=== PATIENT | female | born 1995 | race Caucasian/White ===

== ENCOUNTER 2017-04-16 15:36 | Emergency (ER) | payer MEDICAID ==
[2017-04-16 15:45] VITALS: BP 126/78
[2017-04-16 17:27] LABS: BILIRUBIN,URINE NEGATIVE (NEGATIVE); HCG UR QUAL NEGATIVE; UA w/ MICROSCOPIC CHARGE YES
[2017-04-16 17:31] LABS: UR CULTURE IF IND NOT INDICATED; WBC,URINE 0-3 /HPF (0-5)
--- NOTE | 2017-04-16 18:05 | ED Physician Documentation ---
ED Addendum - Addendum Addendum: 04/16/17 17:54 per triage note 21 y/o female to ER with vag spotting and cramps for 2 months after getting implanted control HCG neg VS normal urine c/w dehydartion but not infection went to see pt and she is not in her room 04/16/17 17:55
== END 2017-04-16 18:09 | disposition left against medical advice (07) ==
LOC: ED 15:36
DX: N93.9 Abnormal uterine and vaginal bleeding, unspecified (principal); Z53.21 Procedure and treatment not carried out due to patient leaving prior to being seen by health care provider
CPT/HCPCS: 81001; 81003; 81025; 87086; 99282

== ENCOUNTER 2017-12-11 14:30 | Outpatient (CLI) | payer MEDICAID | END 2017-12-11 14:31 | disposition home or self-care (01) | LOC: LAB.R 14:30 | PROVIDERS: ATTEND Obstetrics & Gynecology | DX: Z11.3 Encounter for screening for infections with a predominantly sexual mode of transmission (principal) | CPT/HCPCS: 87491; 87591 ==

== ENCOUNTER 2018-12-24 20:25 | Outpatient (CLI) | payer MEDICAID ==
--- NOTE | 2018-12-25 10:34 | Ultrasound Report ---
Reason: AMENORRHEA Procedure Date: 12/24/2018 Accession Number: [id number] / [id number] Procedure: US - OB First Trimester CPT Code: FULL RESULT: EXAM: FIRST TRIMESTER OBSTETRIC ULTRASOUND EXAM DATE: 12/24/2018 08:58 PM. CLINICAL HISTORY: Amenorrhea. LMP: Approximately 10/01/2018. COMPARISONS: None. TECHNIQUE: Transabdominal and transvaginal ultrasound examination with static image documentation. CLINICAL DATES: EGA 12 weeks 0 days with NIALL 07/08/2019 based on LMP. ASSESSMENT: Gestational Sac: Single intrauterine. Mean gestational sac diameter: 117 mm . Embryo: CRL (crown-rump length) 62 mm = 12 weeks 4 days. Cardiac activity: 163 beats per minute. Yolk sac: 5.9 mm. Amniotic fluid: Not accurately assessed at this gestational age. Early placenta: Posterior location. Other: No perigestational fluid collection demonstrated. MATERNAL STRUCTURES: Uterus: Anteverted. Unremarkable. Cervix: Closed. Right Ovary/Adnexa: Not seen. Left Ovary/Adnexa: The ovary measures 3.6 x 3.0 x 2.9 cm, volume 16.3 cc. The ovary is not well seen due to bowel. Free Fluid: None. Other: None. IMPRESSION: 1. Single viable intrauterine at EGA 12 weeks 4 days with NIALL 07/04/2019 based on crown-rump length, which is concordant with clinical dates. 2. Assigned dating is NIALL 07/08/2019 based on LMP. MEL
== END 2018-12-24 20:26 | disposition home or self-care (01) ==
LOC: DI 20:25
PROVIDERS: ATTEND Nurse Practitioner Obstetrics & Gynecology
DX: N91.2 Amenorrhea, unspecified (principal)
CPT/HCPCS: 76801

== ENCOUNTER 2019-01-17 13:33 | Outpatient (CLI) | payer MEDICAID ==
[2019-01-17 13:54] LABS: BASOPHILS # (AUTO) 0.1 10^3/uL (0.0-0.1); BASOPHILS % (AUTO) 0.6 %; EOSINOPHILS # (AUTO) 0.1 10^3/uL (0.0-0.7); EOSINOPHILS % (AUTO) 1.4 %; HGB - HEMOGLOBIN 11.3 g/dL (12.0-16.0); LYMPHOCYTES # (AUTO) 1.7 10^3/uL (1.5-3.5); LYMPHOCYTES % (AUTO) 16.3 %; MEAN CORPUSCULAR HEMOGLOBIN 30.1 pg (27.0-31.0); MEAN CORPUSCULAR HGB CONC 34.8 g/dL (32.0-36.0); MEAN CORPUSCULAR VOLUME 86.5 fL (81.0-99.0); MEAN PLATELET VOLUME 10.1 fL (7.9-10.8); MONOCYTES # (AUTO) 0.4 10^3/uL (0.0-1.0); MONOCYTES % (AUTO) 4.2 %; NEUTROPHILS # (AUTO) 7.9 10^3/uL (1.5-6.6); NEUTROPHILS % (AUTO) 77.5 %; PLT - PLATELET COUNT 194 10^3/uL (130-450); RED BLOOD COUNT 3.76 10^6/uL (4.20-5.40); WHITE BLOOD COUNT 10.2 x10^3/uL (4.8-10.8)
[2019-01-17 14:06] LABS: BILIRUBIN,URINE NEGATIVE (NEGATIVE); GLUCOSE, URINE (UA) NEGATIVE (NEGATIVE); KETONES,URINE (UA) 40 mg/dL (NEGATIVE); LEUKOCYTE ESTERASE, URINE TRACE (NEGATIVE); NITRITE,URINE NEGATIVE (NEGATIVE); OCCULT BLOOD,URINE TRACE-INTA (NEGATIVE); PROTEIN,URINE TRACE mg/dL (NEGATIVE); UROBILINOGEN,URINE 0.2 (NORMAL) E.U./dL (NORMAL)
[2019-01-17 14:38] LABS: CLARITY,URINE CLEAR (CLEAR); RBC,URINE 0-5 /HPF (0-5)
[2019-01-17 14:39] LABS: BACTERIA,URINE Few /HPF (None Seen); SQUAMOUS EPITHELIAL CELL,UR MOD Squamous (<= Few)
[2019-01-18 13:02] LABS: HEPATITIS B SURFACE ANTIGEN NON-REACTIVE (NON-REACTIVE); HEPATITIS C ANTIBODY NON-REACTIVE (NON-REACTIVE)
[2019-01-18 14:12] LABS: HIV AG/AB 4TH GEN NON-REACTIVE (NON-REACTIVE)
== END 2019-01-17 13:34 | disposition home or self-care (01) ==
LOC: LAB 13:33
PROVIDERS: ATTEND Nurse Practitioner Obstetrics & Gynecology
DX: Z36.89 Encounter for other specified antenatal screening (principal)
CPT/HCPCS: 36415; 81001; 81599; 85025; 86762; 86803; 86850; 86900; 86901; 87086; 87340; 87389

== ENCOUNTER 2019-02-19 12:45 | Outpatient (CLI) | payer MEDICAID ==
--- NOTE | 2019-02-19 15:22 | Ultrasound Report ---
Reason: SUPERVISION OF Procedure Date: 02/19/2019 Accession Number: [id number] / [id number] Procedure: US - OB Detailed Eval CPT Code: FULL RESULT: EXAM: COMPLETE OBSTETRICAL ULTRASOUND EXAM DATE: 02/19/2019 12:57 PM. CLINICAL HISTORY: anatomic survey. COMPARISON: OB FIRST TRIMESTER 12/24/2018 8:33 PM. TECHNIQUE: Real-time sonographic evaluation of the fetus performed by the outdoor adventure instructor. Multiple tax representative static images were saved for review. DATING: Established EGA 20 weeks 1 day with NIALL 07/08/2019 based on LMP. EGA 20 weeks 1 day with NIALL 07/08/2019 based on the current ultrasound. GENERAL EVALUATION Kaur . Cardiac activity: 140 bpm. movement: Visualized. Presentation: Cephalic. Placenta: Posterior and fundal position. No evidence for previa. Umbilical cord: 3 vessel cord. Central placental cord origin. Amniotic fluid: Subjectively normal. MVP 4.5 cm and OMA 12.5 cm. BIOMETRY Bi-Parietal Diameter (BPD): 4.6 cm, 20 weeks 0 days Head Circumference (HC): 17.2 cm, 19 weeks 5 days Abdominal Circumference (AC): 15.9 cm, 21 weeks 0 days Femur Length (FL): 3.2 cm, 19 weeks 6 days Estimated Weight: 349 g, 58th percentile for 20 weeks 1 day. ANATOMY The intracranial structures, profile, face/nose/lips, spine, 4 chamber heart and outflow tracts, stomach, abdominal wall and cord insertion, diaphragm, kidneys, bladder, and extremities were visualized and demonstrate no abnormality. MATERNAL STRUCTURES Uterus: Unremarkable. Cervix: Long and closed. Transabdominal length 2.9 cm. Right ovary/adnexa: Unremarkable. Left ovary/adnexa: Unremarkable. Free fluid: None. IMPRESSION: 1. Kaur live intrauterine with gestational age 20 weeks 1 day based on LMP. 2. Estimated weight is within expected limits for assigned dating. 3. Normal anatomic survey. No anatomic abnormalities are detected at this time. RADIA
== END 2019-02-19 12:46 | disposition home or self-care (01) ==
LOC: DI 12:45
PROVIDERS: ATTEND Registered Nurse
DX: Z34.90 Encounter for supervision of normal pregnancy, unspecified, unspecified trimester (principal)
CPT/HCPCS: 76811

== ENCOUNTER 2019-04-03 15:05 | Outpatient (CLI) | payer MEDICAID ==
[2019-04-03 16:29] LABS: HGB - HEMOGLOBIN 11.1 g/dL (12.0-16.0); MEAN CORPUSCULAR HEMOGLOBIN 30.2 pg (27.0-31.0); MEAN CORPUSCULAR VOLUME 88.9 fL (81.0-99.0); MEAN PLATELET VOLUME 10.7 fL (7.9-10.8); RED BLOOD COUNT 3.67 10^6/uL (4.20-5.40); RED CELL DISTRIBUTION WIDTH 12.9 % (12.0-15.0); WHITE BLOOD COUNT 10.8 x10^3/uL (4.8-10.8)
== END 2019-04-03 15:06 | disposition home or self-care (01) ==
LOC: LAB 15:05
PROVIDERS: ATTEND Registered Nurse
DX: Z34.90 Encounter for supervision of normal pregnancy, unspecified, unspecified trimester (principal)
CPT/HCPCS: 36415; 82950; 85027; 86850

== ENCOUNTER 2019-04-15 08:00 | Outpatient (CLI) | payer MEDICAID | END 2019-04-15 23:59 | disposition home or self-care (01) | LOC: LAB.R 08:00 | PROVIDERS: ATTEND Nurse Practitioner Obstetrics & Gynecology | DX: R39.11 Hesitancy of micturition (principal) | CPT/HCPCS: 87086 ==

== ENCOUNTER 2019-06-12 08:00 | Outpatient (CLI) | payer MEDICAID ==
[2019-06-12 19:18] LABS: TRICHOMONAS VAGINALIS DNA NEGATIVE (NEGATIVE)
== END 2019-06-12 08:01 | disposition home or self-care (01) ==
LOC: LAB.R 08:00
PROVIDERS: ATTEND Nurse Practitioner Obstetrics & Gynecology
DX: Z36.85 Encounter for antenatal screening for Streptococcus B (principal); Z11.3 Encounter for screening for infections with a predominantly sexual mode of transmission
CPT/HCPCS: 87491; 87591; 87661; 87797

== ENCOUNTER 2019-06-25 07:19 | Inpatient (IN) | payer MEDICAID ==
[2019-06-25] MEDS ORDERED: MAGNESIUM HYDROXIDE 2,400 MG/30 ML UDC PO PRN (07:38)
[2019-06-25] MEDS ORDERED: SODIUM CHLORIDE FLUSH 0.9% 10 ML SYRINGE IVP PRN (08:53)
--- NOTE | 2019-06-25 08:58 | HISTORY & PHYSICAL EXAMINATION ---
Admit History - Visit Reason Visit Reason: Other - : 2 Parity: 0 Premature: 0 Ectopic: 0 : 1 Care: positive: [facility] Risk/History: positive: None Complications This : positive: Other Smoking Status: Never smoker - Mother's Labs Mother's Blood Type: positive: O Mother's RH: positive: Positive GBS: positive: Group B Step Negative Rubella Status: positive: Immune Meds/Allgy - Home Medications Home Medications: Ambulatory Orders Medication Instructions Recorded Confirmed Metoclopramide [Reglan] 10 mg PO Q6H PRN #20 tablet 10/03/17 Naproxen [Naprosyn] 500 mg PO BID PRN #20 tablet 10/03/17 - Allergies Allergies/Adverse Reactions: Allergies Allergy/AdvReac Type Severity Reaction Status Date / Time No Known Drug Allergies Allergy Verified 10/03/17 19:10 Review of Systems - Constitutional Constitutional: denies: Fatigue, Fever, Chills, Malaise - Eyes Eyes: denies: Blurred vision, Spots in vision, Dipolpia - Cardiovascular Cariovascular: denies: Irregular heart rate, Palpitations, Chest pain, Edema - Gastrointestinal Gastrointestinal: reports: Constipation, Nausea, Vomiting. denies: Abdominal pain - Musculoskeletal Musculoskeletal: denies: Back pain, Muscle aches - Integumentary Integumentary: reports: Pruritis. denies: Rash - Neurological Neurological: denies: Headache, Dizziness - Psychiatric Psychiatric: denies: Depression, Anxiety Physical - Abdominal Exam Contraction Frequency (min/apart): intermittent Contraction Intensity: positive: Mild Uterine Resting Tone: positive: Soft - Monitoring Heart Rate Baseline: 130 Strip Review: positive: Category II - Presentation Presentation: positive: Vertex - Vaginal Exam Membranes: positive: Membranes intact Dilation (in cm): 1 Effacement (%): 50 Station: positive: -3 Cervical Position: positive: Posterior - Speculum Exam Speculum Exam Performed: positive: No Plan for Labor - Plan For Labor I expect patient to be DC'd or transferred within 96 hours.: Yes Plan for Labor: HPI: Salas 23yo @ 38.1wks gestation by LMP c/w 12.4wk ultrasound presents to [facility] on 06/25/2019 @ 0730 for induction of labor with pre-induction cervical ripening secondary to cholestasis of . She has been a patient of [facility] through the duration of her . At her routine office visit at 37.2wks gestation she reported itching on her abdomen and legs which became significantly worse at night. Cholestasis was suspected and labs were ordered. LFTS and bilirubin WNL. Bile acids returned 06/24/2019 and were noted to be elevated to 15 which meets diagnostic criteria for cholestasis in . She was notified and instructed to present for induction of labor. Upon arrival cervix was 1/50/-3, posterior, medium consistency, and vertex position. NST non-reactive in the first hour and patient was placed in observation status for pre-induction cervical ripening with misoprostol. Consent form for induction of labor signed upon arrival. Dating criteria: LMP 10/01/2018 Initial Ultrasound @ 12.4wks c/w LMP dating Serial Exams - agree OB History: G1: 11/16/2017 4-5wks missed G2: Current; Cholestasis in PMHx: Anemia; headaches/migraines Surgical Hx: None Social Hx: No ETOH or IVDA. is active duty Family Hx: Anxiety - maternal grandmother; depression - maternal grandmother; Asthma - mother; Anemia- mother; Breast cancer - maternal great grandmother Medications: Zofran 4mg vitamin Allergies: Fioricet labs: Blood type O positive, antibody neg Hgb 11.1; Hct 32.6; PLT 187 Rubella immune RPR non-reactive Hep B neg GC/CT neg Urine culture neg Pap abnormal -HPV high grade positive HIV neg 1hr GTT 129 GBS negative Immunizations: Tdap 04/15/2019 Ultrasounds: Initial ultrasound 12/24/2018 @ 12.4wks c/w LMP dating FAS 02/19/2019 WNL. Posterior, fundal placenta. No previa. 3VC. Size c/w dating. Physical Exam: Normocephalic, atraumatic Heart RRR w/o M/G/R Lungs CTAB Abdomen gravid, soft and nontender EFW 3000g FHR baseline 130s, minimal variability with brief periods of moderate variability, + accels on occasion, no decels - Category II but overall reassuring at this time SVE 1/50/-3, posterior, medium consistency, vertex. Membranes intact. Bilateral LE's no edema Assessment: 23yo @ 38.1wks gestation by LMP c/w 12.4wk U/S Cholestasis in FHR Category II - overall reassuring Pre-induction cervical ripening Plan: Observation status with admission with SROM or active labor. Continuos monitoring Pre-induction cervical ripening with 50mcg misoprostol q 4 hours BC Encouraged ambulation and frequent position changes Anticipate spontaneous vaginal delivery Patient and verbalized understanding and agree to above plan. They deny questions or concerns at this time. Reviewed patient status and plan of care with groundwater consultant physician whom is in agreement with above plan.
--- NOTE | 2019-06-25 09:27 | PROVIDER PROGRESS NOTE ---
Labor Progress Note - Uterine Monitoring Uterine Monitoring Mode: positive: External toco - Monitoring Monitor Mode: positive: External ultrasound Heart Rate Baseline: 130 Heart Rate Variability: positive: Moderate (6-25 bmp) Accelerations: positive: Present, 15x15 Decelerations: positive: None Strip Review: positive: Category I
[2019-06-25 09:29] LABS: BASOPHILS # (AUTO) 0.1 10^3/uL (0.0-0.1); BASOPHILS % (AUTO) 0.5 %; EOSINOPHILS # (AUTO) 0.2 10^3/uL (0.0-0.7); EOSINOPHILS % (AUTO) 1.8 %; HGB - HEMOGLOBIN 11.8 g/dL (12.0-16.0); MEAN CORPUSCULAR HEMOGLOBIN 28.9 pg (27.0-31.0); MEAN CORPUSCULAR HGB CONC 33.3 g/dL (32.0-36.0); MEAN CORPUSCULAR VOLUME 86.6 fL (81.0-99.0); MEAN PLATELET VOLUME 14.7 fL (7.9-10.8); MONOCYTES # (AUTO) 0.7 10^3/uL (0.0-1.0); MONOCYTES % (AUTO) 6.8 %; NEUTROPHILS % (AUTO) 70.5 %; PLT - PLATELET COUNT 110 10^3/uL (130-450); RED BLOOD COUNT 4.09 10^6/uL (4.20-5.40); RED CELL DISTRIBUTION WIDTH 12.2 % (12.0-15.0); WHITE BLOOD COUNT 9.9 x10^3/uL (4.8-10.8)
[2019-06-25 09:41] LABS: ALBUMIN 3.4 g/dL (3.2-5.5); ALBUMIN/GLOBULIN RATIO 0.9 (1.0-2.2); BILIRUBIN,TOTAL 0.8 mg/dL (0.2-1.0); CALCIUM 9.7 mg/dL (8.5-10.3); CREATININE 0.6 mg/dL (0.4-1.0); TOTAL PROTEIN 7.2 g/dL (6.7-8.2)
[2019-06-25 10:07] LABS: PLATELET ESTIMATE, MANUAL DECREASED (<130,000) (NORMAL); PLATELET MORPHOLOGY 2+ LARGE PLATELETS (NORMAL); RBC MORPHOLOGY (MULTIPLE) NORMAL APPEARANCE (NORMAL)
[2019-06-25] MEDS: ONDANSETRON 4 MG/2 ML VIAL IVP PRN (10:57)
[2019-06-25] MEDS: miSOPROStol 100 MCG TABLET BC SCH ×3 (14:28→22:41)
--- NOTE | 2019-06-25 18:19 | PROVIDER PROGRESS NOTE ---
Labor Progress Note - Uterine Monitoring Uterine Monitoring Mode: positive: External toco Contraction Frequency (min/apart): 2-6 Contraction Intensity: positive: Mild to moderate Uterine Resting Tone: positive: Soft - Monitoring Monitor Mode: positive: External ultrasound Heart Rate Baseline: 130 Heart Rate Variability: positive: Moderate (6-25 bmp) Accelerations: positive: Present, 15x15 Decelerations: positive: None Strip Review: positive: Category I - Labor Progress Note Labor Progress Note/Additional Text: S: Laying comfortably in bed with supportive at the bedside. Feeling some lower abdominal cramping but overall doing well. Reports +FM. Feeling well emotionally and is aware that this can be a long process before active labor. She denies vaginal bleeding or leakage of fluid. Desires Ambien for sleep tonight. O: Platelets on admission - 110; Hct 11.8; Hct 35.4 LFTs -WNL FHR baseline 130s, moderate variability, + accels, no decels Contractions palpate mild-moderate with soft resting tone. SVE - deferred A: 23yo @ 38.1wks gestation Pre-induction cervical ripening with misoprostol s/p 1 dose misoprostol GBS negative P: Continuous monitoring Continue pre-induction cervical ripening with misoprostol 50mcg BC q 4 hours Repeat CBC and CMP in the morning Ambien 10mg tonight to promote sleep. Reviewed plan of care with patient and who are in agreement and verbalized understanding.
[2019-06-25] MEDS ORDERED: ZOLPIDEM 5 MG TABLET PO PRN (21:30)
[2019-06-26] MEDS: miSOPROStol 100 MCG TABLET BC SCH ×2 (02:45→06:30)
[2019-06-26 06:48] LABS: HGB - HEMOGLOBIN 11.7 g/dL (12.0-16.0); MEAN CORPUSCULAR HEMOGLOBIN 28.7 pg (27.0-31.0); MEAN CORPUSCULAR HGB CONC 32.9 g/dL (32.0-36.0); MEAN CORPUSCULAR VOLUME 87.5 fL (81.0-99.0); PLT - PLATELET COUNT 127 10^3/uL (130-450); RED BLOOD COUNT 4.07 10^6/uL (4.20-5.40); RED CELL DISTRIBUTION WIDTH 12.5 % (12.0-15.0); WHITE BLOOD COUNT 11.4 x10^3/uL (4.8-10.8)
[2019-06-26 07:04] LABS: ALBUMIN 3.4 g/dL (3.2-5.5); ALBUMIN/GLOBULIN RATIO 0.9 (1.0-2.2); BILIRUBIN,TOTAL 1.1 mg/dL (0.2-1.0); CALCIUM 9.6 mg/dL (8.5-10.3); CREATININE 0.7 mg/dL (0.4-1.0); TOTAL PROTEIN 7.2 g/dL (6.7-8.2)
--- NOTE | 2019-06-26 08:20 | PROVIDER PROGRESS NOTE ---
Labor Progress Note - Uterine Monitoring Uterine Monitoring Mode: positive: External toco Contraction Frequency (min/apart): 2-6 Contraction Intensity: positive: Moderate Uterine Resting Tone: positive: Soft - Monitoring Monitor Mode: positive: External ultrasound Heart Rate Baseline: 140 Heart Rate Variability: positive: Moderate (6-25 bmp) Accelerations: positive: Present, 15x15 Decelerations: positive: None Strip Review: positive: Category I - Vaginal Exam Dilation (in cm): 2 Effacement (%): 75 Station: -2 Cervical Position: Midposition - Labor Progress Note Labor Progress Note/Additional Text: S: Sitting in bed and beginning to feel more uncomfortable with contractions. Sh codie reports the majority of her discomfort is felt in her back. She did not sleep well throughout the night and states she was not offered and ambien. Reports the reason she did not sleep well was secondary to discomfort with contractions throughout the night. is supportive at the bedside. O: Hgb: 11.8-->11.7 Hct 35.4-->35.6 PLT 110-->127 AST 29-->28 ALT 17-->21 Total bilirubin 0.8-->1.1 Creatinine 0.6-->0.7 FHR baseline 140s, moderate variability, + accels, no decels Contractions palpate moderate every 2-6 minutes with soft resting tone SVE @ 0630 2/75/-2, midposition, medium consistency, vertex, membranes intact A: 23yo @ 38.2wks gestation Cholestasis of - LFTs WNL; PLT improved from 110-->127 Pre-induction cervical ripening with misoprostol s/p 5 total doses GBS neg P: Continuous monitoring Continue pre-induction cervical ripening with misoprostol 50mcg BC q 4 hours Consider SVE prior to administration of next dosage. Will switch to pitocin for induction of labor when cervix is favorable and consider AROM when head is well engaged. Encouraged ambulation and sitting on exercise ball. Advised jacuzzi if contractions become more uncomfortable. Epidural per maternal request. Pt and both verbalized understanding and agree to above plan. They deny further questions or concerns at this time.
[2019-06-26] MEDS: LACTATED RINGERS 1,000 ML IV SCH ×3 (11:28→16:16)
[2019-06-26] MEDS ORDERED: OXYTOCIN/DEXTROSE 5 % 30 UNIT/500 ML BAG IV SCH (12:00)
[2019-06-26] MEDS ORDERED: fent/BUPIV 2 MCG/0.125% 250 ML EP ONE (12:13)
[2019-06-26] MEDS: SODIUM CHLORIDE FLUSH 0.9% 10 ML SYRINGE IVP SCH ×2 (12:49→22:20)
[2019-06-26] MEDS ORDERED: fent/BUPIV 2 MCG/0.125% 250 ML EP PRN (13:00)
[2019-06-26] MEDS ORDERED: diphenhydrAMINE INJ 50 MG/ML VIAL IVP PRN (13:01)
[2019-06-26] MEDS ORDERED: LACTATED RINGERS 500 ML IV ONE (13:01)
[2019-06-26] MEDS ORDERED: NALBUPHINE 10 MG/ML AMP IVP PRN (13:01)
[2019-06-26] MEDS ORDERED: ePHEDrine 50 MG/ML VIAL IVP PRN (13:01)
[2019-06-26] MEDS ORDERED: METOCLOPRAMIDE 10 MG/2 ML VIAL IVP PRN (13:01)
[2019-06-26] MEDS ORDERED: ONDANSETRON 4 MG/2 ML VIAL IVP PRN (13:01)
[2019-06-26] MEDS ORDERED: NALOXONE 0.4 MG/ML VIAL IVP PRN (13:01)
[2019-06-26] MEDS: ONDANSETRON 4 MG/2 ML VIAL IVP PRN (14:05)
--- NOTE | 2019-06-26 16:27 | PROVIDER PROGRESS NOTE ---
Labor Progress Note - Uterine Monitoring Uterine Monitoring Mode: positive: External toco Contraction Frequency (min/apart): 1-4 Contraction Intensity: positive: Strong Uterine Resting Tone: positive: Soft - Monitoring Monitor Mode: positive: External ultrasound Heart Rate Baseline: 140 Heart Rate Variability: positive: Moderate (6-25 bmp) Accelerations: positive: Present, 15x15 Decelerations: positive: Early, Variable, Intermittent (<50% x20 min) Strip Review: positive: Category I - Vaginal Exam Dilation (in cm): 5 Effacement (%): 100 Station: 1 Cervical Position: Anterior - Labor Progress Note Labor Progress Note/Additional Text: S: Patient laying in bed comfortable with epidural with the exception of nausea and vomiting despite administration of zofran. She states she has not been able to rest or sleep with her epidural because she is nervous/anxious/excited about having a baby. O: FHR baseline 140s, moderate variability, + accels, no decels Contractions palpate firm every 1-4 minutes with soft resting tone SVE 5/100/+1, anterior, vertex SROM moderate amount of clear fluid at A: 23yo @ 38.1wks gestation Cholestasis in GBS neg Active labor FHR Category I P: Continue pitocin induction of labor with titration per protocol Continuos monitoring Anticipate spontaneous vaginal delivery
[2019-06-26] MEDS ORDERED: LIDOCAINE-MPF 1% 30 ML VIAL ONE (19:02)
[2019-06-26] MEDS ORDERED: WITCH HAZEL/GLYCERIN 1 PAD TOP PRN (19:48)
[2019-06-26] MEDS ORDERED: HYDROCORTISONE 1% CREAM 28 GM TUBE PR PRN (19:48)
--- NOTE | 2019-06-26 20:06 | DELIVERY NOTE ---
Delivery Note - Labor Labor: positive: Induced by oxytocin - Infant Delivery Method Delivery Method: positive: Spontaneous vaginal delivery - Cervical Ripening Method Cervical Ripening Method: positive: Misoprostil - Presentation Presentation: positive: Vertex, ENRIQUE - left occiput anterior - Nuchal Cord Nuchal Cord: positive: Present, Reduced - Amniotic Fluid Description Amniotic Fluid Description: positive: Clear - Episiotomy Type Episiotomy Type: positive: None - Laceration Laceration: positive: None - Delivery Outcome Delivery Outcome: positive: Livebirth - : positive: Placed in direct skin contact with mother, Stimulated, Warmed, Marshall used [place] sex: positive: Male - Cord Cord: positive: 3 vessels - Placenta Placenta: positive: Intact, Spontaneous - Estimated Blood Loss Estimated Blood Loss (in cc): 200 - Post Delivery Events Post Delivery Events: positive: No post delivery events - Delivery Comments (Free Text/Narrative) Delivery Comments (Free Text/Narrative): This 23yo @ 38.2wks gestation by 12.4wk U/S presented to [facility] on 06/25/2019 for medical induction of labor secondary to cholestasis in . She received 5 total doses of 50mcg misoprostol q 4 hours BC for effective pre- induction cervical ripening. FHR pattern was initially non-reassuring secondary to minimal variability but improved and remained Category I pattern throughout labor. Epidural placed per maternal request. Pitocin administered via IV for induction of labor with a maximum infusion rate of 6mU/mL. SROM occurred at 1500 and was noted to be a small amount of clear fluid. Patient progressed to c/c/+1 @ 1819. : Normal of viable male at 1905 on 06/26/2019. Nuchal cord x 1 easily reduced. placed on maternal abdomen, stimulated, dried, and placed skin to skin. Pitocin administered via IV for hemostasis. Apgars 8/9 at 1 and 5 min respectively. The umbilical cord was allowed to stop pulsating at which time it was doubly clamped by CNM and cut by FOB. Cord blood was obtained. 3VC. EBL 200mL. Placenta delivered spontaneously and intact at 1909. Uterine fundus firm and there is no excessive bleeding. The perineum, vagina, and cervix were inspected and found to be intact. initiated. Family bonding well. Both mother and baby were left in stable condition.
[2019-06-26] MEDS: IBUPROFEN 800 MG TABLET PO SCH (22:26)
[2019-06-26] MEDS: DOCUSATE SODIUM 100 MG CAPSULE PO SCH (22:26)
[2019-06-27] MEDS: IBUPROFEN 800 MG TABLET PO SCH ×3 (04:55→17:20)
--- NOTE | 2019-06-27 08:11 | PROVIDER PROGRESS NOTE ---
Subjective - Subjective Subjective: S: Bonding well with . Having some difficulty with and trying to get baby latched. States she worked through the night to try to keep baby awake at the breast and was able to get 2 successful feeds in. Reports her bleeding is decreased and is light. Her pain is well controlled with ibuprofen. supportive at the bedside. O: BP 117/60, T 36.6, HR 61, RR 16 Heart RRR w/o M/G/R, lungs CTAB, Abdomen soft and nontender with fundus firm at U-1, light lochia rubra, bilateral LE's no edema. A: 23yo -->P1 PPD#1 s/p TSVD of viable male Perineum intact P: Continue routine pp care and medications. Special attention to and support today. Evaluate for discharge home tomorrow. Pt and verbalized understanding and agree to above plan. They deny further questions or concerns at this time. Objective - Vital Signs/Intake & Output Vital Signs: Vital Signs x48h Temp Pulse Resp BP Pulse Ox 06/27/19 06:15 36.6 C 61 16 117/60 99 06/27/19 01:40 73 16 115/74 99 Intake & Output: Intake & Output 06/24/19 06/25/19 06/26/19 06/27/19 23:59 23:59 23:59 23:59 Intake Total 3228.333 Output Total 3100 Balance 128.333 - Lab Results Fish Bones: 06/26/19 06:40 06/26/19 06:40
[2019-06-27] MEDS: DOCUSATE SODIUM 100 MG CAPSULE PO SCH ×2 (08:56→21:49)
[2019-06-28] MEDS: IBUPROFEN 800 MG TABLET PO SCH ×3 (00:36→11:49)
--- NOTE | 2019-06-28 07:20 | Discharge Plan ---
Discharge Plan Problem Reviewed?: Yes Disposition: Home, Self Care Condition: Good Diet: Regular Activity Restrictions: No Restrictions Shower Restrictions: No Driving Restrictions: No Weight Bearing: Full Weight No Smoking: If you smoke, Please STOP! Call for help. Follow-up with: Holley Miller CNM, ARNP [Provider Admit Priv/Credential] -
--- NOTE | 2019-06-28 07:26 | PROVIDER PROGRESS NOTE ---
Subjective - Subjective Subjective: FINAL PROGRESS NOTE: S: Bonding well with baby. without difficulty. Pain is well controlled with oral medications. Bleeding decreased and is light. They are anxious to go home today. supportive at the bedside. O: BP 110/75, HR 70, T 36.7, RR 16 Heart RRR w/o M/G/R, lungs CTAB, abdomen soft and nontender with fundus firm at U-2. Perineum intact. Light lochia rubra. Bilateral LE's no edema. A: 23yo -->P1 PPD#2 s/p TSVD of viable male Perineum intact P: Reviewed pp self care and warning s/sx and when to present. Advised continuation of vitamin while . Advised continuation of ibuprofen and tylenol OTC for pain management PRN. Return in 1 week for support visit and in 3 weeks for routine pp visit or sooner PRN. Pt verbalized understanding and agrees to above plan. supportive at the bedside and present for discharge teaching and also verbalized understanding and agrees to above plan. They deny further questions or concerns at this time. Objective - Vital Signs/Intake & Output Vital Signs: Vital Signs x48h Temp Pulse Resp BP Pulse Ox 06/28/19 06:55 36.7 C 70 16 110/75 100 Intake & Output: Intake & Output 06/25/19 06/26/19 06/27/19 06/28/19 23:59 23:59 23:59 23:59 Intake Total 3228.333 Output Total 3100 Balance 128.333 - Lab Results Fish Bones: 06/26/19 06:40 06/26/19 06:40
[2019-06-28 07:32] LABS: HGB - HEMOGLOBIN 11.7 g/dL (12.0-16.0); MEAN CORPUSCULAR HEMOGLOBIN 29.3 pg (27.0-31.0); MEAN CORPUSCULAR HGB CONC 33.2 g/dL (32.0-36.0); MEAN CORPUSCULAR VOLUME 88.2 fL (81.0-99.0); RED BLOOD COUNT 3.99 10^6/uL (4.20-5.40); RED CELL DISTRIBUTION WIDTH 12.5 % (12.0-15.0); WHITE BLOOD COUNT 12.7 x10^3/uL (4.8-10.8)
[2019-06-28 07:39] LABS: ALBUMIN 3.2 g/dL (3.2-5.5); ALBUMIN/GLOBULIN RATIO 0.9 (1.0-2.2); BILIRUBIN,TOTAL 0.6 mg/dL (0.2-1.0); CALCIUM 9.2 mg/dL (8.5-10.3); CREATININE 0.6 mg/dL (0.4-1.0); TOTAL PROTEIN 6.7 g/dL (6.7-8.2)
[2019-06-28] MEDS: DOCUSATE SODIUM 100 MG CAPSULE PO SCH (08:42)
--- NOTE | 2019-06-28 10:52 | DISCHARGE SUMMARY ---
Physician: JEAN PAUL Franco DATE OF ADMISSION: 06/26/2019 DATE OF DISCHARGE: 06/28/2019 DIAGNOSES ON ADMISSION 1. A 23-year-old G2, P0-0-1-0 at 38.0 weeks' gestation by 12-week ultrasound. 2. Cholestasis in . 3. Group B streptococcus negative. 4. Pre-induction cervical ripening with misoprostol. DIAGNOSES ON DISCHARGE 1. A 23-year-old G2, P1-0-1-1, status post spontaneous vaginal delivery on 06/26/2019. 2. . 3. Normal recovery. BRIEF HISTORY: She is a patient of [facility] who presented on 06/25/2019 for induc tion of labor with pre-induction cervical ripening secondary to cholestasis of . She receiv ed 5 total doses of 50 mcg of misoprostol q.4 hours for effective cervical ripening. Epidural placed per maternal request. Pitocin administered via IV with titration per protocol for a max infusion ra te of 6 milliunits per mL. Spontaneous rupture of membranes occurred at 1500 and was noted to be a s mall amount of clear fluid. Patient progressed to spontaneously deliver a viable male infant at 1905 on 06/26/2019. Nuchal cord x1, easily reduced. Apgars were 8 and 9 at one and five minutes respect ively. EBL was 200 mL. She has been doing well in her course. She is ambulating and tolerating a regular diet. She is urinating without difficulty and her lochia is normal. Her pain is well controlled with oral medications. She has been given precautions to call if she has any worsening fevers, chills, abdomin al pain, increased vaginal bleeding or foul-smelling vaginal lochia. She intends to follow up with ryder martinez at [facility] in 1 week for a support visit and in 2 weeks for shaila klein visit. Both patient and were present for discharge teaching, and verbalized un derstanding and agreed to the above plan. TD: 06/28/2019 07:35
[2019-06-28 11:31] VITALS: BP 118/74
--- NOTE | 2019-06-28 12:51 | Labor Flowsheet ---
Labor Flowsheet Datetime Report Generated by CPN: 06/28/2019 12:51 Datetime: 06/27/2019 20:24 VITAL SIGNS NBP Sys/Mohini/Mean (mmHg): 118 : 76 : 85 Pulse: 78 LaborFlag: Labor Datetime: 06/26/2019 22:25 SpO2 (%): 100 Datetime: 06/26/2019 19:02 Pushing Position: Pushing with Contractions Pushing Progress: Descent with Pushing; Perineal Bulging; with Pushing; Pushing Effectivel y with Contractions Datetime: 06/26/2019 19:01 ASSESSMENT A Monitor Mode: External US FHR Baseline Rate : 150 Variability: Moderate 6-25 bpm Decelerations: Early Category: Category II Datetime: 06/26/2019 18:54 FHR Baseline Changes: No Baseline Change Comments: Decels with pushing Oxygen Method: Nasal Cannula Datetime: 06/26/2019 18:35 UTERINE ACTIVITY Monitor Mode: External Frequency (min): 2 Quality: Strong Pattern: Normal: <= 5 Contractions in 10 Minutes Resting Tone (Palpate): Relaxed Pitocin Checklist: At Least 1 Acceleration of 15 bpm x 15 Seconds in 30 Minutes or Adequate Variabi lity Contraction Comments: Pt pushing Accelerations: 15X15 Datetime: 06/26/2019 18:23 Oxygen Amount (LPM): 10 Datetime: 06/26/2019 18:19 STAGE 2 Pushing: Coached on Pushing; Urge to Push Stage 2 Comments: pushing started Datetime: 06/26/2019 18:13 VAGINAL EXAM Dilatation (cm): 10.0 Datetime: 06/26/2019 18:01 Effacement (%): 100 Station: 2 Exam by: kj Datetime: 06/26/2019 17:30 Monitor Interventions for UA: [place] Adjusted Datetime: 06/26/2019 17:02 Duration (sec): 60 Monitor Interventions for FHR: Ultrasound Adjusted Patient Position/Activity: Right Tilt Hygiene: Underpad Changed Anesthesia Level Check: T10- Umbilicus Datetime: 06/26/2019 15:52 Cervix, Position: Anterior Datetime: 06/26/2019 15:00 Membranes Rupture Method: Spontaneous Amniotic Fluid Color: Clear Amniotic Fluid Amount: Small Amniotic Fluid Odor: Normal Datetime: 06/26/2019 14:45 Membrane Status: Intact Datetime: 06/26/2019 14:31 I/O Interventions: Lozano Cath Inserted Datetime: 06/26/2019 14:01 Stage of : Labor Datetime: 06/26/2019 13:50 COMMUNICATION Communication: Report Given to @ Dilshad Miller, [employer] ADVIS[employer] Notification Reason: Status Update Communication Comments: Notified of time of epidural, and start of pitocin Datetime: 06/26/2019 13:45 Actions for Decelerations: Side to Side Datetime: 06/26/2019 13:01 MEDICATIONS Pitocin (milliunits): Started @ 1300 Datetime: 06/26/2019 12:36 Epidural Procedure: Test Dose Anesthesia Comments: Negative test dose Datetime: 06/26/2019 12:12 PROCEDURE TIME OUT Procedure Type: Epidural Procedure Verify: Correct Patient Identity; Correct Side and Site are Marked; Accurate Procedure Co nsent Form; Agreement on Procedure to be Done; Correct Patient Position; Relevant Images and Results are Properly Labeled and Displayed; Addressed Need to Administer Antibiotics or Fluids for Irrigation ; Safety Precautions Based on Patient History or Medication Use ANESTHESIA Anesthesia Plans: Epidural Epidural Positioning: Sitting Datetime: 06/26/2019 12:01 Temperature (C): 36.8 PAIN Pain Scale: 7 Pain Presence: Intermittent Pain Type: Cramping; Contraction Pain Location: Abdomen; Back Pain Goal: 0 Pain Relief Measures: Comfort Measures Pain Coping: Writhing; Other Datetime: 06/26/2019 11:00 Vaginal Bleeding: Normal Show Cervix, Consistency: Moderate Provider Reviewed Strip: No Provider Notified (Name): Angela Datetime: 06/26/2019 09:19 Patient Care Comments: In Jacuzzi tub Datetime: 06/26/2019 07:30 Pain Assessment Comments: Discussed coping mechanisms to manage ctx MATERNAL ASSESSMENT Level of Consciousness: Fully Conscious DTR's/Clonus: DTRs 2+; No Clonus Headache: Denies Breath Sounds, Left: Clear and Equal Breath Sounds, Right: Clear and Equal Nausea/Vomiting: Denies RUQ Epigastric Pain: Denies Comfort Measures: Breathing/Relaxation; Coaching; Family Support Strip Reviewed by: Emma Miller TEACHING Instructional Method: Patient Instructed; Family/Support Person Instructed Plan of Care: Plan of Care Discussed; Induction Labor/Induction: Labor Stages; Cervical Ripening Pain Management: Comfort Measures Datetime: 06/26/2019 06:30 Cervical Ripening Agents: Cytotec @ Datetime: 06/25/2019 18:28 Respirations: 16 Datetime: 06/25/2019 16:32 Membranes Ruptured Date/Time: 06/26/2019 15:00 Datetime: 06/25/2019 10:59 Antiemetics/Antacids: Zofran (mg) @ 4 Datetime: 06/25/2019 09:13 PATIENT CARE IV/Blood Work: IV Started; Labs Drawn with IV Start; IV Saline Locked
--- NOTE | 2019-07-08 12:34 | DISCHARGE SUMMARY ---
Physician: JEAN PAUL Franco DATE OF ADMISSION: 06/26/2019 DATE OF DISCHARGE: 06/28/2019 DIAGNOSES ON ADMISSION 1. A 23-year-old G2, P0-0-1-0 at 38.1 weeks gestation. 2. Cholestasis of . 3. heart rate category 2. Overall reassuring. 4. Preinduction cervical ripening. DIAGNOSES ON DISCHARGE 1. A 23-year-old G2, P1-0-1-0 status post spontaneous vaginal delivery on 06/26/2019. 2. . 3. Normal recovery. HISTORY OF PRESENT ILLNESS: She is a patient of [facility] who presented on 019 for medical induction of labor secondary to cholestasis in . She received 5 total doses of 50 mcg BC misoprostol 4 hours for a effective preinduction cervical ripening. Epidural placed pe r maternal request. Pitocin administered via IV for induction of labor with a maximum infusion rate of 6 milliunits per mL. Spontaneous rupture of membranes occurred at 1500 and it was noted to be a s mall amount of clear fluid. Patient progressed to spontaneously deliver a viable male infant at 1905 on 06/26/2019. Nuchal cord x1, easily reduced. Apgars were 8 and 9 at 1 and 5 minutes respectively . EBL 200 mL. The perineum, vagina and cervix were inspected and found to be intact. She has been doing well in her course. She is ambulating and tolerating a regular diet. She is urinating without difficulty and her lochia is normal. Her pain is well controlled with oral medications. She will be discharged home today on day #2 with instructions to continue he r vitamin while , and to continue ibuprofen and Tylenol [id number] as nee ded for pain management. She has been given precautions to call if she has any worsening fevers, chi lls, abdominal pain, increased vaginal bleeding or foul-smelling vaginal lochia. She intends to foll ow up with myself at [facility] in 1 week for support visit and in 2 weeks for routine visit or sooner as needed. TD: 07/08/2019 12:24
== END 2019-06-28 12:50 | disposition home or self-care (01) | DRG 805 ==
LOC: WFO 07:19 → FBP 07:20 → WFO 08:52 → FBP 09:03 → OBSVTOIN 06-26 11:20
PROVIDERS: ADMIT Nurse Practitioner Obstetrics & Gynecology; ATTEND Nurse Practitioner Obstetrics & Gynecology
PROC: 10E0XZZ Delivery of Products of Conception, External Approach (ICD-10-PCS; principal; 2019-06-26)
PROC: 3E033VJ Introduction of Other Hormone into Peripheral Vein, Percutaneous Approach (ICD-10-PCS; 2019-06-26)
DX: O26.62 Liver and biliary tract disorders in childbirth (principal); K83.1 Obstruction of bile duct; Z37.0 Single live birth; O76 Abnormality in fetal heart rate and rhythm complicating labor and delivery; O69.81X0 Labor and delivery complicated by cord around neck, without compression, not applicable or unspecified; Z3A.38 38 weeks gestation of pregnancy
CPT/HCPCS: 36415; 59025; 80053; 85025; 85027; 96374; A9270; G0378; G0379; J7120

== ENCOUNTER 2019-11-07 20:02 | Emergency (ER) | payer MEDICAID ==
[2019-11-07 20:19] LABS: BILIRUBIN,URINE NEGATIVE (NEGATIVE); GLUCOSE, URINE (UA) NEGATIVE (NEGATIVE); KETONES,URINE (UA) NEGATIVE (NEGATIVE); LEUKOCYTE ESTERASE, URINE NEGATIVE (NEGATIVE); NITRITE,URINE NEGATIVE (NEGATIVE); OCCULT BLOOD,URINE SMALL (NEGATIVE); PH,URINE 5.5 PH (5.0-7.5); PROTEIN,URINE NEGATIVE (NEGATIVE); UROBILINOGEN,URINE 0.2 (NORMAL) E.U./dL (NORMAL)
[2019-11-07 20:21] LABS: CLARITY,URINE HAZY (CLEAR)
[2019-11-07 20:22] LABS: HCG UR QUAL NEGATIVE
[2019-11-07 20:26] LABS: BASOPHILS % (AUTO) 0.5 %; EOSINOPHILS % (AUTO) 0.8 %; HGB - HEMOGLOBIN 12.8 g/dL (12.0-16.0); LYMPHOCYTES % (AUTO) 5.5 %; MEAN CORPUSCULAR HEMOGLOBIN 29.2 pg (27.0-31.0); MEAN CORPUSCULAR HGB CONC 32.7 g/dL (32.0-36.0); MEAN CORPUSCULAR VOLUME 89.3 fL (81.0-99.0); MEAN PLATELET VOLUME 11.8 fL (7.9-10.8); MONOCYTES % (AUTO) 4.8 %; NEUTROPHILS % (AUTO) 87.8 %; PLT - PLATELET COUNT 229 10^3/uL (130-450); RED BLOOD COUNT 4.39 10^6/uL (4.20-5.40); RED CELL DISTRIBUTION WIDTH 11.6 % (12.0-15.0); WHITE BLOOD COUNT 22.2 x10^3/uL (4.8-10.8)
[2019-11-07 20:29] LABS: ABNORMAL LYMPHS % (MANUAL) 0 %
[2019-11-07 20:32] LABS: BACTERIA,URINE Many /HPF (None Seen); SQUAMOUS EPITHELIAL CELL,UR MANY Squamous (<= Few)
[2019-11-07 20:40] LABS: ALBUMIN 5.2 g/dL (3.2-5.5); ALBUMIN/GLOBULIN RATIO 1.4 (1.0-2.2); BILIRUBIN,TOTAL 1.1 mg/dL (0.2-1.0); CALCIUM 9.8 mg/dL (8.5-10.3); CREATININE 0.6 mg/dL (0.4-1.0); TOTAL PROTEIN 8.9 g/dL (6.7-8.2)
[2019-11-07 20:44] LABS: BAND NEUTROPHILS % (MANUAL) 3 %; DIFFERENTIAL COMMENT MANUAL DIFFERENTIAL; EOSINOPHILS # (MANUAL) 0.2 10^3/uL (0-0.7); LYMPHOCYTES # (MANUAL) 1.8 10^3/uL (1.5-3.5); LYMPHOCYTES % (MANUAL) 8 %; MONOCYTES # (MANUAL) 0.2 10^3/uL (0.0-1.0); PLATELET ESTIMATE, MANUAL NORMAL (130-450,000) (NORMAL); PLATELET MORPHOLOGY NORMAL APPEARANCE (NORMAL); RBC MORPHOLOGY (MULTIPLE) NORMAL APPEARANCE (NORMAL)
[2019-11-07] MEDS ORDERED: MORPHINE 2 MG/ML CARPUJECT IVP STA (20:57)
[2019-11-07] MEDS ORDERED: ONDANSETRON 4 MG/2 ML VIAL IVP STA (20:57)
[2019-11-07] MEDS ORDERED: SODIUM CHLORIDE 0.9% 1,000 ML IV ONE (20:57)
--- NOTE | 2019-11-07 20:57 | ED Physician Documentation ---
History of Present Illness - Stated complaint Stated Complaint: ABD/BACK/RIB PX - Chief complaint Chief Complaint: Abd Pain - Additonal information Additional information: This is a 24-year-old female who Denies past medical history who presents with diffuse abdominal pain. Patient states that her pain began on the left lower quadrant several days ago, then radiated towards her back, and then over the last day has been present on both sides of her abdomen, and has become more generalized. She has some discomfort when she takes deep breaths in as well in her upper abdomen. She has had nausea, no diarrhea, no fever. She denies dysuri a, denies abnormal vaginal discharge, itching, or bleeding. She is monogamous and denies concern for STI. No history of abdominal surgeries. Review of Systems Constitutional: denies: Fever Nose: denies: Rhinorrhea / runny nose Respiratory: denies: Dyspnea GI: reports: Abdominal Pain : denies: Dysuria Neurologic: denies: Generalized weakness Immunocompromised: denies: Immunocompromised PD PAST MEDICAL HISTORY - Past Medical History Cardiovascular: None Respiratory: None Endocrine/Autoimmune: None Musculoskeletal: None - Past Surgical History Past Surgical History: No - Present Medications Home Medications: Ambulatory Orders Medication Instructions Recorded Confirmed Metoclopramide [Reglan] 10 mg PO Q6H PRN #20 tablet 10/03/17 Naproxen [Naprosyn] 500 mg PO BID PRN #20 tablet 10/03/17 Dicyclomine [Bentyl] 10 mg PO TID PRN #15 capsule 11/07/19 Ondansetron Odt [Zofran] 4 mg TL Q6H PRN #10 tablet 11/07/19 - Allergies Allergies/Adverse Reactions: Allergies Allergy/AdvReac Type Severity Reaction Status Date / Time butalbital [From Fioricet] Allergy Severe Hives Verified 11/07/19 20:08 caffeine [From Fioricet] Allergy Severe Hives Verified 11/07/19 20:08 - Social History Does the pt smoke?: No Smoking Status: Never smoker Does the pt drink ETOH?: No Does the pt have substance abuse?: No - Immunizations Immunizations are current?: Yes - POLST Patient has POLST: No PD ED PE NORMAL - Vitals Vital signs reviewed: Yes - General General: Alert and oriented X 3, No acute distress - HEENT HEENT: PERRL - Neck Neck: Supple, no meningeal sign - Cardiac Cardiac: No murmur, Other (Tachycardic, regular rhythm) - Respiratory Respiratory: No respiratory distress, Clear bilaterally - Abdomen Abdomen: Soft, Non distended, Other (Diffusely mildly tender to palpation, no focal area that is more tender than others. No gaurding.) - Derm Derm: Warm and dry - Extremities Extremities: No deformity - Neuro Neuro: Alert and oriented X 3 - Psych Psych: Normal mood, Normal affect Results - Vitals Vitals: Vital Signs - 24 hr 11/07/19 11/07/19 11/07/19 20:06 22:05 23:23 Temperature 37.1 C 37.5 C Heart Rate 125 H 108 H 111 H Respiratory 16 14 20 Rate Blood Pressure 116/63 118/75 117/72 O2 Saturation 100 98 98 Oxygen O2 Source Room air - Labs Labs: Laboratory Tests 11/07/19 11/07/19 11/07/19 20:10 20:20 20:20 WBC 22.2 H RBC 4.39 Hgb 12.8 Hct 39.2 MCV 89.3 MCH 29.2 MCHC 32.7 RDW 11.6 L Plt Count 229 MPV 11.8 H Neut # (Auto) Not Reportable Lymph # (Auto) Not Reportable [place] # (Auto) Not Reportable Eos # (Auto) Not Reportable Baso # (Auto) Not Reportable Absolute Nucleated RBC Not Reportable Total Counted 100 Band Neuts % (Manual) 3 Abnorm Lymph % (Manual) 0 Nucleated RBC % Not Reportable Neutrophils # (Manual) 20.0 H Lymphocytes # (Manual) 1.8 Monocytes # (Manual) 0.2 Eosinophils # (Manual) 0.2 Basophils # (Manual) 0.0 Differential Comment MANUAL DIFFERENTIAL Manual Slide Review Indicated WBC Morphology NORMAL APPEARANCE Platelet Estimate NORMAL (130-450,000) Platelet Morphology NORMAL APPEARANCE RBC Morph Micro Appear NORMAL APPEARANCE Sodium 138 Potassium 3.4 L Chloride 102 Carbon Dioxide 24 Anion Gap 12.0 BUN 13 Creatinine 0.6 Estimated GFR (MDRD) 125 Glucose 107 H Calcium 9.8 Total Bilirubin 1.1 H AST 19 ALT 18 Alkaline Phosphatase 60 Total Protein 8.9 H Albumin 5.2 Globulin 3.8 Albumin/Globulin Ratio 1.4 Lipase 23 Urine Color YELLOW Urine Clarity HAZY Urine pH 5.5 Ur Specific [place] 1.025 Urine Protein NEGATIVE Urine Glucose (UA) NEGATIVE Urine Ketones NEGATIVE Urine Occult Blood SMALL H Urine Nitrite NEGATIVE Urine Bilirubin NEGATIVE Urine Urobilinogen 0.2 (NORMAL) Ur Leukocyte Esterase NEGATIVE Urine RBC 6-10 H Urine WBC 0-3 Ur Squamous Epith Cells MANY Squamous H Urine Bacteria Many H Ur Microscopic Review INDICATED Urine Culture Comments NOT INDICATED Urine HCG, Qual NEGATIVE - Rads (name of study) CT abd/pelvis Radiology: Other (Normal CT without abdominal or pelvic process) CXR Radiology: Other (NO cardiopulmonary abnormality) PD MEDICAL DECISION MAKING - ED course Complexity details: considered differential (Appendicitis, nephrolithiasis, gastroenteritis, UTI/pyelo, pancreatitis, enteritis, torsion, STI, PID) ED course: Pt is non-toxic appearing on my exam, she did have tachycardia in triage. She has diffuse abdominal tenderness without focal tenderness. Labs show a leukocytosis of 22, abdominal panel unremarkable, UA negative for infection, HCG negative. CT abd/pelvis is normal. CXR also obtained given she has some abdominal discomfort with inhalation, and is negative. She has no focal lower abdominal tenderness, no pelvic symptoms, no risk factors for PID, no fever. She is feeling much better after one dose of pain medications and anti-emetics. She has no focal RUQ tenderness to suggest biliary pathology. I discussed further work up with pelvic exam/ultrasound, she is feeling better and would like to trial careful observation at home. I think this is reasonable given her now completely benign abdomen, and no pelvic symptoms. She has no focal or unilateral pain to suggest torsion. I did add a chlam/truong test to her urine. I discussed our results, my concern about her leukocytosis, and the diagnostic uncertainty. She understands that if she has worsening she needs to return to the ED, and if her symptoms are not improved she should have a recheck tomorrow. Pt agreed and was discharged in the home of her . I called to check in on patient at 19:00 on 11/08/19. She states that she is feeling much better and is not having abdominal pain, and also denies any other new symptoms. I again discussed my concern with the leukocytosis and recommended that if she has recurrence of symptoms she return to the ED for re-examination and consideration of a pelvic exam and/or US. Pt agrees. Departure - Departure Disposition: 01 Home, Self Care Clinical Impression: Abdominal pain Qualifiers: Abdominal location: generalized Qualified Code(s): R10.84 - Generalized abdominal pain Condition: Good Instructions: ED Abdominal Pain Unkn Cause Follow-Up: Your,PCP [Other] - Within 1 week Prescriptions: Dicyclomine [Bentyl] 10 mg PO TID PRN #15 capsule PRN Reason: Abdominal Pain Ondansetron Odt [Zofran] 4 mg TL Q6H PRN #10 tablet PRN Reason: Nausea / Vomiting Comments: You were seen today for abdominal pain, your labs did show a high white blood cell count, but your CT scan does not show any obvious abnormalities. Your chest XR also does not show any obvious problems. I do not have a clear explanation for your pain or your elevated white blood cell count, so it is very important that if your symptoms are returning or getting worse, or you have other c oncerning symptoms such as fever, pain or burning with urination, abnormal vaginal discharge, or any other concerning symptoms that you return to the emergency department. Even if you are feeling better please follow-up with your primary care provider in the next week. You may take Tylenol and ibuprofen for pain, if this is not effective in controlling her pain please return to the emergency. Discharge Date/Time: 11/07/19 23:30
[2019-11-07] MEDS ORDERED: IOVERSOL 320 100 ML VIAL IVP ONE ×2 (21:08→21:49)
--- NOTE | 2019-11-07 22:02 | XRAY Report ---
Reason: chest pain Procedure Date: 11/07/2019 Accession Number: [id number] / [id number] Procedure: XR - Chest 1 View X-Ray CPT Code: 10600 Final Report FULL RESULT: EXAM: CHEST RADIOGRAPHY EXAM DATE: 11/07/2019 09:21 PM. CLINICAL HISTORY: Chest pain. COMPARISON: None. TECHNIQUE: 1 view. FINDINGS: Lungs/Pleura: No focal opacities evident. No pleural effusion. No pneumothorax. Mediastinum: Within exam limitations, the cardiomediastinal contour is normal. Other: None. IMPRESSION: Normal single view chest. RADIA
--- NOTE | 2019-11-07 22:05 | CT Report ---
Reason: Diffusely tender, started LLQ, high leukocytosis Procedure Date: 11/07/2019 Accession Number: [id number] / [id number] Procedure: CT - Abdomen/Pelvis W CPT Code: Final Report FULL RESULT: EXAM: CT ABDOMEN AND PELVIS EXAM DATE:11/07/2019 09:44 PM CLINICAL HISTORY: Diffusely tender, started LLQ, high leukocytosis. COMPARISONS: None. TECHNIQUE: Routine helical CT imaging was performed through the abdomen and pelvis with OPTI 320 100ML IV contrast. Oral contrast No. Reconstructions: Coronal and sagittal. In accordance with CT protocol optimization, one or more of the following dose reduction techniques were utilized for this exam: automated exposure control, adjustment of mA and/or KV based on patient size, or use of iterative reconstructive technique. FINDINGS: Lung Bases: Clear lung bases. No pleural effusion. Liver: Normal. Gallbladder/Bile Ducts: Normal. Spleen: Normal. Pancreas: Normal. Adrenal Glands: Normal. Kidneys: Normal. No hydronephrosis. Peritoneal Cavity/Bowel: Normal contour and caliber of the bowel. Trace physiologic free fluid. No free air or lymphadenopathy. The appendix is not visualized; however, no inflammatory changes at the base of the cecum. Pelvic Organs: Normal. The bladder and visualized pelvic organs appear normal. Vasculature: Normal. Bones: Normal. Other: None. IMPRESSION: Normal CT evaluation of the abdomen and pelvis. No acute intra-abdominal or pelvic process seen. RADIA
[2019-11-07] MEDS ORDERED: ONDANSETRON ODT 4 MG Prepack 2 TL PRN (23:19)
[2019-11-07 23:24] VITALS: BP 117/72
[2019-11-08 22:15] LABS: TRICHOMONAS VAGINALIS DNA NEGATIVE (NEGATIVE)
== END 2019-11-07 23:30 | disposition home or self-care (01) ==
LOC: ED 20:02
DX: R10.84 Generalized abdominal pain (principal); D72.829 Elevated white blood cell count, unspecified; R00.0 Tachycardia, unspecified
CPT/HCPCS: 36415; 71045; 74177; 80053; 81001; 81025; 83690; 85025; 87491; 87591; 87661; 96361; 96374; 96375; 99283; Q9967; 81003; 87086